=== PATIENT | female | born 2000 | race Hispanic/Latino ===

== ENCOUNTER 2025-05-16 18:00 | Inpatient (IN) | payer BC ==
[2025-05-16] MEDS ORDERED: Tranexamic Acid 1,000 MG/10 ML VIAL IVP PRN (18:32)
[2025-05-16] MEDS ORDERED: HYDROcodone/Acetaminophen 5/325 mg Tablet PO PRN (18:32)
[2025-05-16] MEDS ORDERED: Oxytocin 30 units/NS 500 ML 500 ML IV SCH (18:32)
[2025-05-16] MEDS ORDERED: Carboprost 250 MCG/ML AMP IM PRN (18:32)
[2025-05-16] MEDS ORDERED: hydrALAZINE 20 MG/ML VIAL SLOW IVP PRN (18:32)
[2025-05-16] MEDS ORDERED: Acetaminophen 500 MG TAB PO PRN (18:32)
[2025-05-16] MEDS ORDERED: Diphenoxylate HCl/Atropine Tablet PO PRN ×2 (18:32)
[2025-05-16] MEDS ORDERED: Ibuprofen 800 MG TAB PO PRN (18:32)
[2025-05-16] MEDS ORDERED: Lidocaine 1% (PF) 30 ML VIAL SC PRN (18:32)
[2025-05-16] MEDS ORDERED: Ondansetron PF 4 MG/2 ML Vial IVP PRN (18:32)
[2025-05-16 18:43] VITALS: BMI 27.7
[2025-05-16 20:18] LABS: Hematocrit 29.0 % (34.9-44.5); Hemoglobin 10.3 g/dL (12.0-15.5); Mean Corpuscular Hemoglobin 34.4 pg (27.0-33.0); Mean Corpuscular Volume 97.0 fL (81.6-98.3); Platelet Count 226 10x3/uL (150-450); Red Blood Cell (RBC) Count 2.99 10x6/uL (3.90-5.03); White Blood Cell (WBC) Count 11.17 10x3/uL (3.5-10.5)
[2025-05-16 21:01] LABS: Syphilis Antibody Index 0.07 S/CO (<1.00 Non-Reactive)
[2025-05-16 21:03] LABS: Hep B Surf Ag - L&D Non-Reactive S/CO (NonReactive)
[2025-05-16] MEDS: Oxytocin 30 units/NS 500 ML 500 ML IV SCH (21:45)
[2025-05-17] MEDS: fentaNYL/Ropivacaine Epidural 100 ML ONE (10:01)
[2025-05-17] MEDS ORDERED: diphenhydrAMINE 50 MG/ML VIAL IVP PRN (10:08)
[2025-05-17] MEDS ORDERED: Acetaminophen 325 MG TAB PO PRN (10:08)
[2025-05-17] MEDS ORDERED: Ondansetron PF 4 MG/2 ML Vial IVP PRN (10:08)
[2025-05-17] MEDS ORDERED: Communication Order-Pharmacy FS SCH (10:15)
[2025-05-17] MEDS ORDERED: fentaNYL 2 mcg/Ropivacaine 0.2% Epidural 100 ML CADD EPIDURAL SCH (10:15)
[2025-05-17] MEDS: Methylergonovine 0.2 MG/ML VIAL ONE ×2 (18:22→21:44)
[2025-05-17] MEDS ORDERED: hydrALAZINE 20 MG/ML VIAL SLOW IVP PRN (21:03)
[2025-05-17] MEDS ORDERED: Milk Of Magnesia 30 ML UDCUP PO PRN (21:03)
[2025-05-17] MEDS ORDERED: Bisacodyl 10 MG SUPP PR PRN (21:03)
[2025-05-17] MEDS ORDERED: Boostrix 0.5 ML (Tdap) VIAL (>/=7 yrs of age) IM ONE (21:03)
[2025-05-17] MEDS ORDERED: Lanolin Ointment 7 GM TUBE TOP PRN (21:03)
[2025-05-17] MEDS ORDERED: Preparation H Ointment 28 GM TUBE PR PRN (21:03)
[2025-05-17] MEDS: HYDROcodone/Acetaminophen 5/325 mg Tablet PO PRN (22:02)
[2025-05-17] MEDS: Ibuprofen 800 MG TAB PO SCH (22:58)
[2025-05-18] MEDS: Ibuprofen 800 MG TAB PO SCH (03:25)
[2025-05-18] MEDS: Ferrous Sulfate 325 MG TAB PO SCH (07:53)
[2025-05-18] MEDS ORDERED: Benzocaine-Menthol 82.5 ML CAN TOP PRN (10:05)
[2025-05-18] MEDS ORDERED: Witch Hazel 100 PAD JAR TOP PRN (10:06)
[2025-05-18] MEDS ORDERED: Bupivacaine 0.25% HCL 30 ML VIAL ONE (19:28)
[2025-05-19 08:06] VITALS: BP 91/54; TEMP 98.2
== END 2025-05-19 15:10 | disposition home or self-care (01) | DRG 807 ==
LOC: CSHLD 18:19 → CSHPP 05-17 20:40
PROVIDERS: ADMIT Obstetrics & Gynecology; ATTEND Obstetrics & Gynecology
PROC: 10D07Z6 Extraction of Products of Conception, Vacuum, Via Natural or Artificial Opening (ICD-10-PCS; principal; 2025-05-17)
DX: O48.0 Post-term pregnancy (principal); Z37.0 Single live birth; O75.81 Maternal exhaustion complicating labor and delivery; Z3A.40 40 weeks gestation of pregnancy; Z79.899 Other long term (current) drug therapy
CPT/HCPCS: 36415; 51702; 85027; 86780; 86850; 86900; 86901; 87340; J0665; J2210; J2590